=== PATIENT | male | born 1960 | race Two or more races ===

== ENCOUNTER → 2022-12-12 | Day surgery (SDC) | payer BC ==
[~2022-12-12] VITALS: Ht 165.1 cm; Wt 104.3 kg
[~2022-12-12] MED LIST: ALBUAER3 IN; ASCOPOW OR; CHOL200031 PO; CIPROFLOXACIN 400MG/200ML 200 ML IV ONE; DexAMETHasone SOD PHOS 10MG/1ML VIAL INJ ONE; GLYCOPYRROLATE 0.2 MG/ML 1ML VIAL ONE; IBUP800T27 PO; LOSA-69 PO; METO-6 PO; ONDANSETRON HCL 4 MG/2 ML VIAL ONE; PROPOFOL 10 MG/ML 20 ML IV ONE; SODIUM CHLORIDE LOCK 10 ML ONE; ZINC100T5 PO; ePHEDrine SULFATE 50 MG/ML AMP ONE; fentaNYL CITRATE 100 MCG/2 ML VL ONE; mitoMYcin 40 MG in STERILE WATER 60 ML IS ONE
[2022-12-12 15:40] VITALS: BP 113/72
== END | disposition home or self-care (01) ==
LOC: SUR 09:15
PROVIDERS: ATTEND Urology
DX: D09.0 Carcinoma in situ of bladder (principal); I10 Essential (primary) hypertension; F17.210 Nicotine dependence, cigarettes, uncomplicated; Z85.51 Personal history of malignant neoplasm of bladder; Z98.890 Other specified postprocedural states; Z79.1 Long term (current) use of non-steroidal anti-inflammatories (NSAID); Z20.822 Contact with and (suspected) exposure to COVID-19
CPT/HCPCS: 51720; 52240; 88305; 88342; J0744; J1100; J2405; J2704; J3010; J9280; U0003

== ENCOUNTER 2023-06-05 08:32 | Day surgery (SDC) | payer BC ==
[~2023-06-05] VITALS: Ht 165.1 cm; Wt 104.3 kg
[~2023-06-05 08:32] MED LIST changes: +ALBU108A5 IN; -ALBUAER3 IN; +ASCO500T11 PO; -ASCOPOW OR; -CHOL200031 PO; +CHOLTAB12 PO; -CIPROFLOXACIN 400MG/200ML 200 ML IV ONE; +CYCL-837 PO; -DexAMETHasone SOD PHOS 10MG/1ML VIAL INJ ONE; +GABA-1250 PO; -GLYCOPYRROLATE 0.2 MG/ML 1ML VIAL ONE; +IBUP-1456 PO; -IBUP800T27 PO; -LOSA-69 PO; +LOSA100T58 PO; +MET50T PO; -METO-6 PO; -ONDANSETRON HCL 4 MG/2 ML VIAL ONE; -PROPOFOL 10 MG/ML 20 ML IV ONE; -SODIUM CHLORIDE LOCK 10 ML ONE; -ZINC100T5 PO; +ZINC50TA7 PO; -ePHEDrine SULFATE 50 MG/ML AMP ONE; -fentaNYL CITRATE 100 MCG/2 ML VL ONE; -mitoMYcin 40 MG in STERILE WATER 60 ML IS ONE
[2023-06-05] MEDS ORDERED: CIPROFLOXACIN 400MG/200ML 200 ML IV ONE (11:23)
[2023-06-05] MEDS ORDERED: fentaNYL CITRATE 100 MCG/2 ML VL ONE (13:59)
[2023-06-05] MEDS ORDERED: MIDAZOLAM HCL 2MG/2ML 2ml VIAL (1mg/ml) ONE (14:00)
[2023-06-05] MEDS ORDERED: ONDANSETRON HCL 4 MG/2 ML VIAL ONE ×2 (14:36→14:37)
[2023-06-05] MEDS ORDERED: PROPOFOL 10 MG/ML 20 ML IV ONE (14:38)
[2023-06-05] MEDS ORDERED: ONDANSETRON HCL 4 MG/2 ML VIAL IV PRN (15:00)
[2023-06-05] MEDS ORDERED: HYDROmorphone HCL 2 MG/ML VL/or syr IV PRN ×2 (15:00)
[2023-06-05 16:00] VITALS: BP 108/64; PULSE 75; RESP 13; TEMP 97.6; O2SAT 94
== END 2023-06-05 16:00 | disposition home or self-care (01) ==
LOC: SUR 08:32
PROVIDERS: ATTEND Urology
DX: D09.0 Carcinoma in situ of bladder (principal); N30.20 Other chronic cystitis without hematuria; I10 Essential (primary) hypertension; E66.01 Morbid (severe) obesity due to excess calories; Z68.38 Body mass index [BMI] 38.0-38.9, adult; Z79.899 Other long term (current) drug therapy; F17.200 Nicotine dependence, unspecified, uncomplicated
CPT/HCPCS: 52204; 88305; 88342; C1769; J0744; J2250; J2405; J2704; J3010; J7030